=== PATIENT | male | born 1985 | race Caucasian/White ===

== ENCOUNTER 2017-05-18 22:01 | Emergency (ER) | payer OTHER ==
[2017-05-19 00:48] VITALS: BP 121/62
== END 2017-05-19 00:48 | disposition home or self-care (01) ==
LOC: ED 22:01
DX: M79.672 Pain in left foot (principal); G89.29 Other chronic pain; R03.0 Elevated blood-pressure reading, without diagnosis of hypertension

== ENCOUNTER 2017-05-25 20:36 | Emergency (ER) | payer OTHER ==
[2017-05-25 21:17] LABS: BASOPHIL % 2.6 % (0-2); PLATELET COUNT 234 x10^3mcL (130-400); RED CELL DISTRIBUTION WIDTH 13.6 % (11.5-14.5)
[2017-05-25 21:21] LABS: CALCIUM 9.1 mg/dL (8.5-10.1); CARBON DIOXIDE 27.2 mmol/L (21-32); CHLORIDE SERUM 106 mmol/L (98-107); GFR1 > 60 mL/min; GLUCOSE SERUM 103 mg/dL (74-106); POTASSIUM SERUM 3.6 mmol/L (3.5-5.1); SODIUM SERUM 139 mmol/L (136-145)
[2017-05-25 21:25] LABS: ALBUMIN 3.7 g/dL (3.4-5.0); ALKALINE PHOSPHATASE 106 U/L (46-116); ALT/SGPT 94 U/L (16-63); AST/SGOT 41 U/L (15-37); BILIRUBIN TOTAL 0.5 mg/dL (0.20-1.00)
[2017-05-25 22:39] VITALS: BP 127/73
== END 2017-05-25 22:39 | disposition home or self-care (01) ==
LOC: ED 20:36
PROVIDERS: Emergency Medicine
DX: R55 Syncope and collapse (principal); R51 Headache; R42 Dizziness and giddiness; Z79.1 Long term (current) use of non-steroidal anti-inflammatories (NSAID); Z79.899 Other long term (current) drug therapy
CPT/HCPCS: 36415; J0780; J1885; Q0092

== ENCOUNTER 2017-06-02 06:33 | Emergency (ER) | payer OTHER ==
[2017-06-02 07:02] VITALS: BP 127/76
== END 2017-06-02 07:02 | disposition home or self-care (01) ==
LOC: ED 06:33
DX: G89.29 Other chronic pain (principal); R51 Headache; R42 Dizziness and giddiness

== ENCOUNTER 2017-06-07 22:47 | Emergency (ER) | payer OTHER ==
[2017-06-07 23:59] VITALS: BP 135/76
== END 2017-06-07 23:59 | disposition home or self-care (01) ==
LOC: ED 22:47
DX: M76.62 Achilles tendinitis, left leg (principal); Z79.1 Long term (current) use of non-steroidal anti-inflammatories (NSAID); Z79.899 Other long term (current) drug therapy

== ENCOUNTER 2017-06-12 13:43 | Emergency (ER) | payer OTHER ==
[~2017-06-12] VITALS: Ht 157.5 cm; Wt 83.6 kg
[2017-06-12 18:53] VITALS: BP 126/83
== END 2017-06-12 18:53 | disposition home or self-care (01) ==
LOC: ED 13:43
DX: S92.902A Unspecified fracture of left foot, initial encounter for closed fracture (principal); X58.XXXA Exposure to other specified factors, initial encounter; Y93.89 Activity, other specified; Y99.8 Other external cause status; Y92.89 Other specified places as the place of occurrence of the external cause
CPT/HCPCS: J1885

== ENCOUNTER 2017-12-29 23:45 | Emergency (ER) | payer OTHER ==
[~2017-12-29] VITALS: Ht 157.5 cm; Wt 92.1 kg
[2017-12-30 00:23] VITALS: Ht 157.5 cm; Wt 92.1 kg
[2017-12-30 01:25] VITALS: BP 130/74
== END 2017-12-30 01:25 | disposition home or self-care (01) ==
LOC: ED 23:45
DX: M72.2 Plantar fascial fibromatosis (principal); Z98.890 Other specified postprocedural states
CPT/HCPCS: Q0092

== ENCOUNTER 2017-12-31 03:01 | Emergency (ER) | payer OTHER ==
[2017-12-31 03:19] VITALS: BP 134/84
== END 2017-12-31 03:19 | disposition home or self-care (01) ==
LOC: ED 03:01
DX: L72.8 Other follicular cysts of the skin and subcutaneous tissue (principal)

== ENCOUNTER 2018-01-06 23:55 | Emergency (ER) | payer OTHER ==
[~2018-01-06] VITALS: Ht 152.4 cm; Wt 93.0 kg
[2018-01-06 23:57] VITALS: Ht 152.4 cm; Wt 93.0 kg
[2018-01-07 00:30] VITALS: BP 142/90
== END 2018-01-07 00:30 | disposition home or self-care (01) ==
LOC: ED 23:55
DX: M72.2 Plantar fascial fibromatosis (principal)

== ENCOUNTER 2018-02-28 14:37 | Emergency (ER) | payer OTHER ==
[~2018-02-28] VITALS: Ht 157.5 cm; Wt 88.5 kg
[2018-02-28 15:47] LABS: BASOPHIL % 0.8 % (0-2); PLATELET COUNT 260 x10^3mcL (130-400); RED CELL DISTRIBUTION WIDTH 12.8 % (11.5-14.5)
[2018-02-28 15:53] LABS: CALCIUM 8.7 mg/dL (8.5-10.1); CARBON DIOXIDE 22.5 mmol/L (21-32); CHLORIDE SERUM 108 mmol/L (98-107); CREATININE SERUM 0.9 mg/dL (0.7-1.3); GFR1 > 60 mL/min; GLUCOSE SERUM 95 mg/dL (74-106); POTASSIUM SERUM 3.8 mmol/L (3.5-5.1); SODIUM SERUM 141 mmol/L (136-145)
[2018-02-28 15:58] LABS: ALBUMIN 3.8 g/dL (3.4-5.0); ALKALINE PHOSPHATASE 107 U/L (46-116); ALT/SGPT 58 U/L (16-63); AST/SGOT 23 U/L (15-37); BILIRUBIN TOTAL 0.51 mg/dL (0.20-1.00); LIPASE 72 IU/L (73-393); TOTAL PROTEIN, SERUM 7.4 g/dL (6.4-8.2)
[2018-02-28 16:48] VITALS: BP 120/80
== END 2018-02-28 16:48 | disposition home or self-care (01) ==
LOC: ED 14:37
PROVIDERS: Emergency Medicine
DX: K92.2 Gastrointestinal hemorrhage, unspecified (principal); Z90.49 Acquired absence of other specified parts of digestive tract
CPT/HCPCS: 83880; J2270; J2405; J3490

== ENCOUNTER 2018-03-06 18:37 | Emergency (ER) | payer OTHER ==
[~2018-03-06] VITALS: Ht 157.5 cm; Wt 88.0 kg
[2018-03-06 19:01] VITALS: Ht 157.5 cm; Wt 88.0 kg
[2018-03-06 20:22] LABS: BASOPHIL % 1.9 % (0-2); PLATELET COUNT 247 x10^3mcL (130-400); RED CELL DISTRIBUTION WIDTH 12.9 % (11.5-14.5)
[2018-03-06 20:31] LABS: CALCIUM 8.6 mg/dL (8.5-10.1); CHLORIDE SERUM 105 mmol/L (98-107); GFR1 > 60 mL/min; GLUCOSE SERUM 104 mg/dL (74-106); POTASSIUM SERUM 3.3 mmol/L (3.5-5.1); SODIUM SERUM 138 mmol/L (136-145)
[2018-03-06 20:35] LABS: ALBUMIN 3.7 g/dL (3.4-5.0); ALKALINE PHOSPHATASE 104 U/L (46-116); ALT/SGPT 53 U/L (16-63); AST/SGOT 18 U/L (15-37); BILIRUBIN TOTAL 0.5 mg/dL (0.20-1.00); TOTAL PROTEIN, SERUM 7.2 g/dL (6.4-8.2)
[2018-03-06 21:20] LABS: AMPHETAMINE QUAL UR NONE DETECTED (NEG <=1000)
[2018-03-06 22:01] VITALS: BP 159/80
== END 2018-03-06 22:10 | disposition home or self-care (01) ==
LOC: ED 18:37
PROVIDERS: Emergency Medicine
DX: R07.89 Other chest pain (principal); R20.2 Paresthesia of skin; R10.9 Unspecified abdominal pain; Z90.89 Acquired absence of other organs
CPT/HCPCS: 36415; G0480; J1885; Q0092

== ENCOUNTER 2018-03-17 18:05 | Emergency (ER) | payer OTHER ==
[~2018-03-17] VITALS: Ht 152.4 cm; Wt 86.2 kg
[2018-03-17 18:20] VITALS: Ht 152.4 cm; Wt 86.2 kg
[2018-03-17 19:56] VITALS: BP 134/84
== END 2018-03-17 19:56 | disposition home or self-care (01) ==
LOC: ED 18:05
DX: R42 Dizziness and giddiness (principal)
CPT/HCPCS: J8597

== ENCOUNTER 2018-03-25 01:51 | Emergency (ER) | payer OTHER ==
[~2018-03-25] VITALS: Ht 157.5 cm; Wt 88.5 kg
[2018-03-25 01:58] VITALS: Ht 157.5 cm; Wt 88.5 kg
[2018-03-25 03:12] VITALS: BP 116/77
== END 2018-03-25 03:12 | disposition home or self-care (01) ==
LOC: ED 01:51
DX: S93.402A Sprain of unspecified ligament of left ankle, initial encounter (principal); Z90.89 Acquired absence of other organs; W17.2XXA Fall into hole, initial encounter; Y93.89 Activity, other specified; Y92.89 Other specified places as the place of occurrence of the external cause; Y99.8 Other external cause status

== ENCOUNTER 2018-05-07 06:02 | Emergency (ER) | payer OTHER ==
[~2018-05-07] VITALS: Ht 152.4 cm; Wt 85.7 kg
[2018-05-07 06:07] VITALS: Ht 152.4 cm; Wt 85.7 kg
[2018-05-07 06:50] LABS: CALCIUM 8.1 mg/dL (8.5-10.1); CHLORIDE SERUM 107 mmol/L (98-107); CREATININE SERUM 0.8 mg/dL (0.7-1.3); GFR1 > 60 mL/min; GLUCOSE SERUM 107 mg/dL (74-106); POTASSIUM SERUM 3.7 mmol/L (3.5-5.1); SODIUM SERUM 142 mmol/L (136-145)
[2018-05-07 06:58] LABS: ALBUMIN 3.5 g/dL (3.4-5.0); ALKALINE PHOSPHATASE 150 U/L (46-116); ALT/SGPT 41 U/L (16-63); AST/SGOT 14 U/L (15-37); BILIRUBIN TOTAL 0.2 mg/dL (0.20-1.00); LIPASE 88 IU/L (73-393); TOTAL PROTEIN, SERUM 6.9 g/dL (6.4-8.2)
[2018-05-07 07:01] LABS: BASOPHIL % 0.4 % (0-2); PLATELET COUNT 216 x10^3mcL (130-400); RED CELL DISTRIBUTION WIDTH 13.3 % (11.5-14.5)
[2018-05-07 07:52] VITALS: BP 115/74
== END 2018-05-07 07:52 | disposition home or self-care (01) ==
LOC: ED 06:02
PROVIDERS: Emergency Medicine
DX: R10.31 Right lower quadrant pain (principal); R19.7 Diarrhea, unspecified; Z90.89 Acquired absence of other organs
CPT/HCPCS: 36415

== ENCOUNTER 2018-05-09 00:35 | Emergency (ER) | payer OTHER ==
[~2018-05-09] VITALS: Ht 157.5 cm; Wt 84.1 kg
[2018-05-09 00:53] VITALS: Ht 157.5 cm; Wt 84.1 kg
[2018-05-09 04:25] LABS: BASOPHIL % 1.3 % (0-2); PLATELET COUNT 225 x10^3mcL (130-400); RED CELL DISTRIBUTION WIDTH 13.2 % (11.5-14.5)
[2018-05-09 04:33] LABS: CALCIUM 8.3 mg/dL (8.5-10.1); CARBON DIOXIDE 25.4 mmol/L (21-32); CHLORIDE SERUM 107 mmol/L (98-107); CREATININE SERUM 0.8 mg/dL (0.7-1.3); GFR1 > 60 mL/min; GLUCOSE SERUM 122 mg/dL (74-106); POTASSIUM SERUM 3.4 mmol/L (3.5-5.1); SODIUM SERUM 141 mmol/L (136-145)
[2018-05-09 04:37] LABS: ALKALINE PHOSPHATASE 109 U/L (46-116); ALT/SGPT 51 U/L (16-63); AST/SGOT 19 U/L (15-37); BILIRUBIN TOTAL 0.42 mg/dL (0.20-1.00); LIPASE 69 IU/L (73-393); TOTAL PROTEIN, SERUM 6.7 g/dL (6.4-8.2)
[2018-05-09 04:39] LABS: ALBUMIN 3.3 g/dL (3.4-5.0)
[2018-05-09 05:14] VITALS: BP 108/65
== END 2018-05-09 05:50 | disposition home or self-care (01) ==
LOC: ED 00:35
PROVIDERS: Emergency Medicine
DX: R10.84 Generalized abdominal pain (principal); R11.10 Vomiting, unspecified; R19.7 Diarrhea, unspecified; Z90.49 Acquired absence of other specified parts of digestive tract
CPT/HCPCS: 36415

== ENCOUNTER 2018-05-18 18:39 | Emergency (ER) | payer OTHER ==
[~2018-05-18] VITALS: Ht 162.6 cm; Wt 84.1 kg
[2018-05-18 19:54] VITALS: BP 124/84
== END 2018-05-18 19:54 | disposition home or self-care (01) ==
LOC: ED 18:39
DX: M79.672 Pain in left foot (principal); Z90.89 Acquired absence of other organs
CPT/HCPCS: J1885

== ENCOUNTER 2018-05-21 08:27 | Emergency (ER) | payer OTHER ==
[~2018-05-21] VITALS: Ht 157.5 cm; Wt 85.8 kg
[2018-05-21 08:32] VITALS: Ht 157.5 cm; Wt 85.8 kg
[2018-05-21 11:20] VITALS: BP 136/76
== END 2018-05-21 11:20 | disposition home or self-care (01) ==
LOC: ED 08:27
DX: H52.10 Myopia, unspecified eye (principal); R51 Headache; Z90.49 Acquired absence of other specified parts of digestive tract
CPT/HCPCS: J3030; J7030